=== PATIENT | male | born 1955 | race Caucasian/White ===

== ENCOUNTER → 2020-08-06 | Outpatient (CLI) | payer MEDICARE, OTHER ==
[2014-07-12 15:13] VITALS: BP 138/79
[~2020-08-06] MED LIST: ASPI-482 PO; DOCU-109 PO; GABA-585 PO; GADOTERATE 7.5 MMOL/15ML VIAL. IVP ONE; HYDR-2679 PO; METH-38 PO; NAPR-695 PO; NAPR220C4 PO; PROVENTIL HFA6.7 GM IH; PUMP160C2 PO; TRAM50TA PO; [UNRECOGNIZED DRUG - CODE] PO
--- NOTE | 2020-08-06 11:25 | KCIC ---
EXAM: Lumbar spine, flexion and extension. HISTORY: Radiculopathy. COMPARISON: None. FINDINGS: Lateral flexion and extension views of the lumbar spine are obtained. There is slight retro listhesis of L2 on L3 which does not change between flexion and extension. There is degenerative endp late remodeling with disc space narrowing, osteophytosis, facet arthropathy and vacuum phenomenon at L3-L4, L4-L5 and L5-S1. There is calcified scar plaque throughout the aorta and iliac bifurcation. IMPRESSION: 1. Multilevel degenerative change, primarily at L3-S1. 2. Slight retrolisthesis of L2 on L3. Electronically signed by: Yohana Qureshi MD (08/06/2020 11:22 AM) [id number]
--- NOTE | 2020-08-06 14:17 | KCIC ---
MRI of the lumbar spine without and with contrast 08/06/2020 CLINICAL HISTORY: Low back pain with leg pain. History of previous lumbar spine surgery. TECHNIQUE: Unenhanced T1-weighted and T2-weighted sagittal and axial and inversion recovery sagittal images of the lumbar spine were obtained. After the intravenous administration of 20 cc of DOTAREM, e nhanced T1-weighted sagittal and axial images of the lumbar spine were obtained. FINDINGS: Comparison is made to a MRI of the lumbar spine dated 05/05/2014. Very mild S-shaped curvature of the thoracolumbar spine is seen. Degenerative signal changes are seen involving all of the disks of the lumbar spine. Degenerative signal changes are seen within the mavis ow surrounding these discs. Loss of height of the L3-4, L4-5 and L5-S1 discs is noted. The conus medu llaris is normal morphology, position, and signal characteristics. At the L1-2 disc space there is a mild generalized disc bulge. Degenerative changes are seen involvin g the facet joints bilaterally. There is mild ligamentum flavum hypertrophy bilaterally. These findin gs do not result in significant central spinal canal or neural foraminal stenosis. At the L2-3 disc space there is a mild generalized disc bulge. Superimposed on this disc bulge is a l eft paracentral focal disc protrusion. This measures 5 mm in AP diameter. Degenerative changes are se en involving the facet joints bilaterally. There is mild to moderate ligamentum flavum hypertrophy bi laterally. There is prominence of the posterior epidural fat. There are small facet joint effusions b ilaterally. These findings when combined result in moderate to severe left greater than right central spinal canal stenosis. No neural foraminal stenosis is seen. At the L3-4 disc space the patient is post right hemilaminotomy. There is a mild to moderate generali zed disc bulge. Degenerative changes are seen involving the facet joints bilaterally. There is modera te left ligamentum flavum hypertrophy. These findings when combined result in mild to moderate left g reater than right central spinal canal stenosis. Mild to moderate left greater than right neural fora petey stenosis is seen. At the L4-5 disc space there is a mild to moderate generalized disc bulge. This is eccentric to the r ight. Degenerative changes are seen involving the facet joints bilaterally. There is mild ligamentum flavum hypertrophy bilaterally. These findings when combined do not result in significant central spi nal canal stenosis. Mild right neural foraminal stenosis is seen. The left neural foramen is patent. At the L5-S1 disc space there is a moderate generalized disc bulge. Degenerative changes are seen inv olving the facet joints bilaterally. There is moderate ligamentum flavum hypertrophy bilaterally. The re is prominence of the posterior epidural fat. These findings when combined result in mild central s bolivar canal stenosis. Moderate to severe right greater than left neural foraminal stenosis is seen. IMPRESSION: 1. Post right hemilaminotomy at L4-5. 2. The changes of degenerative disc disease are seen throughout the lumbar spine. These findings resu lts in moderate to severe left greater than right central spinal canal stenosis at L2-3, mild to mode rate left greater than right central spinal canal stenosis at L3-4 and mild central spinal canal sten osis at L5-S1. Mild to moderate left greater than right neural foraminal stenosis is seen at L3-4. Mi ld right neural foraminal stenosis is seen at L4-5. Moderate to severe right greater than left neural foraminal stenosis is seen at L5-S1. Electronically signed by: Emery Abraham MD (08/06/2020 2:15 PM) [place] [id number]
== END ==
LOC: KCIC MRI 10:38
PROVIDERS: ATTEND Neurological Surgery
DX: M47.27 Other spondylosis with radiculopathy, lumbosacral region (principal); M43.16 Spondylolisthesis, lumbar region; M48.07 Spinal stenosis, lumbosacral region
CPT/HCPCS: 72100; 72158; 82565; A9575

== ENCOUNTER → 2020-09-10 | Outpatient (CLI) | payer MEDICARE, OTHER ==
[2014-07-12 15:13] VITALS: BP 138/79
[~2020-09-10] MED LIST changes: -GADOTERATE 7.5 MMOL/15ML VIAL. IVP ONE; +IOHEXOL 180 MG/ML 10 ML VIAL. ONE; +methylPREDNISolone ACETATE 40 MG/ML VIAL. ONE; +methylPREDNISolone ACETATE 80 MG/ML VIAL. ONE
--- NOTE | 2020-09-10 12:55 | PDOC1 ---
INITIAL PAIN CONSULT DATE OF SERVICE: DOS: DATE: 09/10/20 TIME: 12:49 CHIEF COMPLAINT: Chief Complaint: Low back and right lower extremity pain HISTORY OF PRESENT ILLNESS: 64-year-old male presents history of pain in the low back and right lower extremity for many years worse over the past 1 year or so without any specific injury or accident that he is aware of. Patient reports pain is increasing across the low back on both sides and then radiate the right lower extremity mostly in the posterior and lateral aspect of the thigh and anterior medial thigh to the knee and upper lower leg on the medial aspect on the right only. Patient reports no recent injuries no other falls or etiology for the pain has been increasing with time. Patient is done physical therapy as well as chiropractic treatment and exercise for the past 2 years without significant long-term improvement patient is taking Aleve tramadol as well as gabapentin all of which decrease the pain but only by about 20 to 25%. Patient scribes pain is constant sharp stabbing throbbing shooting in the right lower extremity anterior thigh intermittent intensity changes with walking and standing worse with c hanging positions worse with standing better with resting or sitting and generally does not awaken her from sleep at night. Patient reports it does affect his ability to walk is not use any assistive devices however to ambulate. Patient describes the pain in the back is aching and cold as well patient rates his disability rating 0-10 10 being the worst is a 7 with family home res ponsibilities and social activity 10 with recreational activity 8 with occupation and sexual behavior 7 with self-care and 5 of life support activities. Patient had MRI scan of the lumbar spine dated August 06, 2020 showing previous right hemilaminotomy at L4-5 and moderate degenerative disc changes throughout with moderate to severe left greater than right central spinal canal stenosis at L2-3 mild to moderate left greater than right central canal stenosis at L3-4 and mild central spinal canal stenosis at L5-S1. Patient reports significant fatigability with walking with right lower extremity but no overt motor loss. PAST MEDICAL HISTORY: PMH: COPD, cigarette smoking, arthritis PREVIOUS SURGERIES: Past Surgical Hx: Lumbar laminectomy 2013 CURRENT MEDICATIONS: Current Meds: Active Scripts Medications Dose Route/Sig Max Daily Dose Days Date Category Tramadol Hcl 50 Mg Tablet 50 Mg PO Q6HRS PRN 09/10/20 Reported Gabapentin (Gabapentin) 100 Mg Capsule 100 Mg PO BID 09/10/20 Reported Aleve (Naproxen Sodium) 220 Mg Capsule 220 Mg PO BID 09/10/20 Reported Proventil Hfa Inhaler (Albuterol Sulfate) 6.7 Gm Hfa.aer.ad 2 Puff IH TID 07/07/14 Reported ALLERGIES; Allergies: Coded Allergies: No Known Drug Allergies (Unverified , 07/12/14) FAMILY HISTORY: Family Hx: No major medical problems or conditions that he is aware of SOCIAL HISTORY: Social Hx: Patient drinks alcohol 2-3 drinks every 3 to 4 days smokes 1 pack cigarettes continues to smoke and has for 45 years does not use any illegal illicit or recreational drugs is lives with his spouse lives locally in [facility] and reports he is still working. REVIEW OF SYSTEMS: ROS: Positive for those items mentioned in history of present illness, all systems are reviewed, otherwise negative ,and are complete full and well-documented on patient's chart. PHYSICAL EXAM: VS: Blood pressure is 162/85 pulse 58 respirations 16 temperature 98.4 F height is 6 foot weight is 229 pounds PE: PHYSICAL EXAMINATION: GENERAL: The patient is awake, alert, oriented, appropriate, very pleasant demeanor HEENT: Shows normocephalic, atraumatic. Extraocular movements are intact and symmetrical. Oral cavity: Mucous membranes moist and pink. Dentition is intact. NECK: Shows anterior throat supple without palpable lymphadenopathy noted. Swallow reflex symmetrical. CHEST: Shows normal on inspection. Breath sounds are clear of the upper middle and lower distribution the lung bull on the right, left side shows some mild wheezing throughout the upper middle lower lung bull. HEART: Shows S1, S2 clear. No murmurs auscultated. ABDOMEN: Soft, nontender, nondistended, obese. No palpable organomegaly is noted. No rebound or guarding demonstrated. BACK: Shows spine grossly in the midline. Normal-appearing cervical lordotic curvature. There is slightly increased thoracic kyphosis, some minor flattening of the lumbar lordotic curvature, with well-healed midline surgical scar noted. Lumbar paraspinous muscles show symmetrical on inspection, on palpation shows some moderate tenderness diffusely throughout the upper, middle and lower distribution of the paraspinous muscles bilaterally and also into the lower thoracic paraspinous musculature, firm and tender, but without specific trigger points, without radiation of pain. The patient has good rotational motion of the lumbar spine, both laterally as well as extension and flexion without significant difficulty. No tenderness over the spinous processes, sacrum or sacroiliac regions. EXTREMITIES: Lower extremities show deep tendon reflexes 1+ in the patellar and tendo calcaneus tendons. Motor exam is 4 on a scale of 5 with right dorsiflexion, extension, quadriceps and hamstring flexion and 5/5 on the left. Peripheral pulses are 1+ posterior tibial. No peripheral edema is noted bilaterally. Lower extremities are warm and dry to touch, equal in color and appearance. The patient is able to stand, stand on his toes that significant difficulty or loss of balance, walks with a slight favoring gait does appear to favor the right lower extremity mildly but not use any assistive devices canes or walkers to ambulate. SKIN: Shows warm and dry, good turgor. No edema. No sores, rashes or bruising throughout. IMPRESSION: Impression: 64-year-old male with long history of low back and right lower extremity pain worse over the past year in a radicular fashion. MRI scan lumbar spine as noted. COPD Arthritis Cigarette smoking Plan: Options were discussed with the patient including conservative medical management physical therapies interventional techniques. Patient elects interventional techniques. We discussed a lumbar epidural steroid injection using description as well as anatomical models described procedure. Risks were discussed including but not limited to: Bleeding, infection, possibility of epidural hematoma and subsequent neurological compromise, dural puncture, headaches, spinal cord and/or nerve damage, side effects of steroid medication, and poor results regarding pain control. Patient understands and wished to proceed. Patient return to clinic approximate 2 weeks for follow-up, was counseled as to return appointment activity level and side effects be aware of. Procedure is lumbar epidural steroid injection under local anesthetic using sterile prep and drape at the L3-4 level using C-arm fluoroscopic guidance in both AP and lateral views medications injected is 120 mg Depo-Medrol + 10 mL preservative-free normal saline and 2 mL contrast- condition at discharge is stable patient tolerated procedure well had no complications. VLADIMIR AGUILAR MD Sep 10, 2020 12:55
== END | disposition home or self-care (01) ==
LOC: PNCL 10:16
PROVIDERS: ATTEND Anesthesiology
DX: M54.5 Low back pain (principal); M79.604 Pain in right leg; J44.9 Chronic obstructive pulmonary disease, unspecified; M19.90 Unspecified osteoarthritis, unspecified site; Z87.891 Personal history of nicotine dependence; Z79.899 Other long term (current) drug therapy; Z98.890 Other specified postprocedural states; Z72.89 Other problems related to lifestyle
CPT/HCPCS: 62323; J1030; J1040; Q9965

== ENCOUNTER → 2020-09-24 | Outpatient (CLI) | payer MEDICARE, OTHER ==
[2014-07-12 15:13] VITALS: BP 138/79
--- NOTE | 2020-09-24 10:35 | PDOC ---
Progress Note - Pain Clinic Date of Service: DOS: DATE: 09/24/20 TIME: 10:32 Diagnosis: Dx: Lumbar radiculopathy with lumbar degenerative disease lumbar spinal stenosis and lumbar postlaminectomy syndrome History or Present Illness: HPI: 64-year-old male returns follow-up status post lumbar epidural steroid action x1. Patient reports about 50% improvement in low back and right lower extremity pain patient ports he is increase activity with greater ease and comfort and walking greater distances sleeping better at night doing household activities travel with greater ease as well. Patient reports his pain is in the low back and the right lower extremity mostly the posterior gluteus lateral thigh anterior thigh medial thigh on the right patient reports an 8 on scale 10 is worse over the past week 7 on average 6 its least and is a 6 today. Patient reports it can be stabbing in the back aching and alternating with dull and sharp activity with radiating pain in the right lower extremity which can be constant with weightbearing. Patient reports no new motor or sensory deficits no new bowel or bladder incontinence or other complaints. Physical Exam: VS: Blood pressure is 166/91 pulse 54 respirations 18 temperature is 98.2 F height is 6 foot weight is 229 pounds PE: PHYSICAL EXAMINATION: GENERAL: The patient is awake, alert, oriented, appropriate, very pleasant demeanor HEENT: Shows normocephalic, atraumatic. Extraocular movements are intact and symmetrical. Oral cavity: Mucous membranes moist and pink. NECK: Shows anterior throat supple without palpable lymphadenopathy noted. Swallow reflex symmetrical. CHEST: Shows normal on inspection. Breath sounds are clear bilaterally. HEART: Shows S1, S2 clear. No murmurs auscultated. ABDOMEN: Soft, nontender, nondistended, obese. No palpable organomegaly is noted. BACK: Shows spine grossly in the midline. Normal-appearing cervical lordotic curvature. There is increased thoracic kyphosis, some flattening of the lumbar lordotic curvature, with well-healed surgical scar in the midline. Lumbar paraspinous muscles show symmetrical on inspection, on palpation shows some moderate tenderness diffusely throughout the upper, middle and lower distribution of the paraspinous muscles without specific trigger points, without radiation of pain. The patient has good rotational motion of the lumbar spine, both laterally as well as extension and flexion without significant difficulty. No tenderness over the spinous processes, sacrum or sacroiliac regions. EXTREMITIES: Lower extremities show deep tendon reflexes 1+ in the patellar and tendo calcaneus tendons. Motor exam is 4 on a scale of 5 with right dorsiflexion, extension, quadriceps and hamstring flexion and 5/5 on the left. Peripheral pulses are 1+ posterior tibial. No peripheral edema is noted bilaterally. Lower extremities are warm and dry to touch, equal in color and appearance. SKIN: Shows warm and dry, good turgor. No edema. No sores, rashes or bruising throughout. Procedure: Procedure: Options were discussed with the patient. Patient chart reviews his current medication regimen updated current review of systems updated today as well. We will proceed with a second in the series lumbar epidural steroid injection with fluoroscopic guidance. Risks were discussed including but not limited to: Bleeding, infection, possibility of epidural hematoma and subsequent neurological compromise, dural puncture, headaches, spinal cord and/or nerve damage, side effects of steroid medication, and poor results regarding pain control. Patient understands and wished to proceed. Patient will return to clinic in approximate 2 weeks for follow-up, was counseled as to return appointment activity level and side effects to be aware of. Medication Injected: Med Injected: Procedure is lumbar epidural steroid injection under local anesthetic using sterile prep and drape at the L3-4 level using C-arm fluoroscopic guidance in both AP and lateral views medications injected is 120 mg Depo-Medrol + 10 mL preservative-free normal saline and 2 mL contrast- condition at discharge is stable patient tolerated procedure well had no complications. Condition at Discharge: Condition at Discharge: Condition at discharge stable, patient tolerated procedure well and had no complications. VLADIMIR AGUILAR MD Sep 24, 2020 10:35
--- NOTE | 2020-09-24 10:35 | PDOC4 ---
PROCEDURE Procedure Patient was consented for lumbar epidural steroid injection. Risks were dis cussed including but not limited to: Bleeding, infection, possibility of epidural hematoma and subsequent neurological compromise, dural puncture, headaches, spinal cord and/or nerve damage, side effects of steroid medication, and poor results regarding pain control. Patient understands and wished to proceed. Procedure is lumbar epidural steroid injection under local anesthetic using sterile prep and drape at the L3-4 level using C-arm fluoroscopic guidance in both AP and lateral views medications injected is 120 mg Depo-Medrol + 10 mL preservative-free normal saline and 2 mL contrast- condition at discharge is stable patient tolerated procedure well had no complications. VLADIMIR AGUILAR MD Sep 24, 2020 10:35
== END | disposition home or self-care (01) ==
LOC: PNCL 09:47
PROVIDERS: ATTEND Anesthesiology
DX: M51.16 Intervertebral disc disorders with radiculopathy, lumbar region (principal); M48.061 Spinal stenosis, lumbar region without neurogenic claudication; M96.1 Postlaminectomy syndrome, not elsewhere classified; J44.9 Chronic obstructive pulmonary disease, unspecified; M19.90 Unspecified osteoarthritis, unspecified site; Z79.899 Other long term (current) drug therapy; Z98.890 Other specified postprocedural states; Z87.891 Personal history of nicotine dependence; Z72.89 Other problems related to lifestyle
CPT/HCPCS: 62323; J1030; J1040; Q9965